=== PATIENT | female | born 1990 | race Caucasian/White ===

== ENCOUNTER 2016-12-17 05:15 | Emergency (ER) | payer BC ==
[2016-12-17 05:24] VITALS: RESP 16
[2016-12-17 05:49] LABS: Appearance,Urine Clear (Clear); Bilirubin,Urine Negative (Negative); Glucose,Urine (UA) Negative (Negative); Ketones,Urine Negative (Negative); Leukocyte Esterase,Urine Negative (Negative); Nitrite,Urine Negative (Negative); PH, Urine 6.5 (5.0-8.0); Protein,Urine Negative (Negative); Specific Gravity,Urine 1.006 (1.001-1.035); UA Billing (MACRO vs. MICRO) CHEM; Urobilinogen,Urine <2.0 mg/dL (<2.0)
--- NOTE | 2016-12-17 06:00 | ED ---
Abdominal Pain HPI - General Chief Complaint: Abdominal Pain Stated Complaint: Abd pain Time Seen by Provider: 12/17/16 05:39 Source: patient Mode of arrival: ambulatory Limitations: no limitations - History of Present Illness Initial Comments: This patient is 26-year-old woman who states that approximately an hour ago she was awakened from sleep by severe lower abdominal cramp. She states that it caused her to be doubled over in pain for number of minutes. She states that the symptoms have improved, and it is now down to mild intensity but has not completely resolved. She denies any previous history of this type of pain. There were no accompanying symptoms. She did notice that if she pressed on her low abdomen that seemed to help a little bit. She did not notice any worsening factors. She states that she had been in her usual state of health yesterday with no change in appetite, urination, or bowel movements. No change in periods or vaginal discharge. MD Complaint: abdominal pain Onset/Timin -: hour(s) Location: suprapubic Radiation: none Migration to: no migration Severity: severe Quality: cramping Consistency: colicky Improves With: other (Pressing on) Worsens With: nothing Associated Symptoms: denies other symptoms - Related Data Home Medications Medication Instructions Recorded Confirmed Mesalamine [Lialda] 1.2 gm PO 01/25/15 01/25/15 Norgestimate-Ethinyl Estradiol 1 each PO 01/25/15 01/25/15 [Sprintec 28 Day Tablet] Previous Rx's Medication Instructions Recorded Benzonatate [Tessalon Perles] 100 mg PO TID #30 cap 01/25/15 Naproxen [Naprosyn] 500 mg PO Q12HR PRN #20 tab 01/25/15 traMADol HCl [Ultram] 50 mg PO Q4H PRN #15 tab 01/25/15 Dicyclomine [Bentyl] 20 mg PO QID #15 tablet 12/17/16 Allergies Allergy/AdvReac Type Severity Reaction Status Date / Time No Known Allergies Allergy Verified 12/17/16 05:24 Review of Systems ROS Statement: Those systems with pertinent positive or pertinent negative responses have been documented in the HPI. ROS Other: All systems not noted in ROS Statement are negative. Constitutional: Denies: fever, chills Respiratory: Denies: cough, dyspnea Cardiovascular: Denies: chest pain, palpitations Gastrointestinal: Reports: as per HPI, abdominal pain. Denies: diarrhea, constipation, melena, hematochezia Genitourinary: Denies: dysuria, frequency, hematuria, discharge, abnormal menses Musculoskeletal: Denies: back pain Skin: Denies: rash Neurological: Denies: headache, weakness, numbness Past Medical History Past Medical History: No Reported History Additional Past Medical History / Comment(s): ulcerative colitis History of Any Multi-Drug Resistant Organisms: None Reported Past Surgical History: No Surgical Hx Reported Past Psychological History: No Psychological Hx Reported Smoking Status: Never smoker Past Alcohol Use History: Occasional Past Drug Use History: None Reported General Exam Limitations: no limitations General appearance: alert, in no apparent distress ENT exam: Present: normal oropharynx Respiratory exam: Present: normal lung sounds bilaterally. Absent: respiratory distress, wheezes, rales, rhonchi, stridor Cardiovascular Exam: Present: regular rate, normal rhythm, normal heart sounds. Absent: systolic murmur, diastolic murmur, rubs, gallop GI/Abdominal exam: Present: soft, normal bowel sounds. Absent: distended, tenderness, guarding, rebound, rigid, mass, pulsatile mass, hernia Extremities exam: Present: normal inspection, normal capillary refill. Absent: pedal edema, calf tenderness Back exam: Present: normal inspection. Absent: CVA tenderness (R), CVA tenderness (L) Skin exam: Present: warm, dry, intact, normal color. Absent: rash Course Vital Signs 12/17/16 12/17/16 05:22 06:43 Temperature 97.7 F 98.5 F Pulse Rate 97 72 Respiratory 16 16 Rate Blood Pressure 112/78 102/62 O2 Sat by Pulse 96 100 Oximetry Medical Decision Making - Medical Decision Making This patient is a 26-year-old woman who woke with severe lower abdominal spasm. Her symptoms are now resolved. We discussed appropriate further care and follow-up. She'll return should the symptoms recur or there are any new ones. - Lab Data Result diagrams: 12/17/16 05:50 12/17/16 05:50 Lab Results 12/17/16 12/17/16 12/17/16 Range/Units 05:30 05:30 05:50 WBC (3.8-10.6) k/uL RBC (3.80-5.40) m/uL Hgb (11.4-16.0) gm/dL Hct (34.0-46.0) % MCV (80.0-100.0) fL MCH (25.0-35.0) pg MCHC (31.0-37.0) g/dL RDW (11.5-15.5) % Plt Count (150-450) k/uL Neutrophils % % Lymphocytes % % Monocytes % % Eosinophils % % Basophils % % Neutrophils # (1.3-7.7) k/uL Lymphocytes # (1.0-4.8) k/uL Monocytes # (0-1.0) k/uL Eosinophils # (0-0.7) k/uL Basophils # (0-0.2) k/uL Sodium 142 (137-145) mmol/L Potassium 4.0 (3.5-5.1) mmol/L Chloride 108 H (98-107) mmol/L Carbon Dioxide 24 (22-30) mmol/L Anion Gap 10 mmol/L BUN 11 (7-17) mg/dL Creatinine 0.60 (0.52-1.04) mg/dL Est GFR (MDRD) Af Amer >60 (>60 ml/min/1.73 sqM) Est GFR (MDRD) Non-Af >60 (>60 ml/min/1.73 sqM) Glucose 96 (74-99) mg/dL Calcium 9.4 (8.4-10.2) mg/dL Total Bilirubin 1.0 (0.2-1.3) mg/dL AST 22 (14-36) U/L ALT 29 (9-52) U/L Alkaline Phosphatase 54 (38-126) U/L Total Protein 6.9 (6.3-8.2) g/dL Albumin 4.3 (3.5-5.0) g/dL Amylase 35 (30-110) U/L Lipase 51 (23-300) U/L Urine Color Yellow Urine Appearance Clear (Clear) Urine pH 6.5 (5.0-8.0) Ur Specific [place] 1.006 (1.001-1.035) Urine Protein Negative (Negative) Urine Glucose (UA) Negative (Negative) Urine Ketones Negative (Negative) Urine Blood Negative (Negative) Urine Nitrite Negative (Negative) Urine Bilirubin Negative (Negative) Urine Urobilinogen <2.0 (<2.0) mg/dL Ur Leukocyte Esterase Negative (Negative) Urine HCG, Qual Not Detected (Not Detectd) 12/17/16 Range/Units 05:50 WBC 7.7 (3.8-10.6) k/uL RBC 4.35 (3.80-5.40) m/uL Hgb 13.2 (11.4-16.0) gm/dL Hct 38.4 (34.0-46.0) % MCV 88.3 (80.0-100.0) fL MCH 30.3 (25.0-35.0) pg MCHC 34.4 (31.0-37.0) g/dL RDW 13.3 (11.5-15.5) % Plt Count 211 (150-450) k/uL Neutrophils % 63 % Lymphocytes % 28 % Monocytes % 5 % Eosinophils % 2 % Basophils % 0 % Neutrophils # 4.9 (1.3-7.7) k/uL Lymphocytes # 2.2 (1.0-4.8) k/uL Monocytes # 0.4 (0-1.0) k/uL Eosinophils # 0.1 (0-0.7) k/uL Basophils # 0.0 (0-0.2) k/uL Sodium (137-145) mmol/L Potassium (3.5-5.1) mmol/L Chloride (98-107) mmol/L Carbon Dioxide (22-30) mmol/L Anion Gap mmol/L BUN (7-17) mg/dL Creatinine (0.52-1.04) mg/dL Est GFR (MDRD) Af Amer (>60 ml/min/1.73 sqM) Est GFR (MDRD) Non-Af (>60 ml/min/1.73 sqM) Glucose (74-99) mg/dL Calcium (8.4-10.2) mg/dL Total Bilirubin (0.2-1.3) mg/dL AST (14-36) U/L ALT (9-52) U/L Alkaline Phosphatase (38-126) U/L Total Protein (6.3-8.2) g/dL Albumin (3.5-5.0) g/dL Amylase (30-110) U/L Lipase (23-300) U/L Urine Color Urine Appearance (Clear) Urine pH (5.0-8.0) Ur Specific [place] (1.001-1.035) Urine Protein (Negative) Urine Glucose (UA) (Negative) Urine Ketones (Negative) Urine Blood (Negative) Urine Nitrite (Negative) Urine Bilirubin (Negative) Urine Urobilinogen (<2.0) mg/dL Ur Leukocyte Esterase (Negative) Urine HCG, Qual (Not Detectd) Disposition Clinical Impression: Abdominal pain Disposition: HOME SELF-CARE Condition: Good Instructions: Abdominal Pain (ED) Prescriptions: Dicyclomine [Bentyl] 20 mg PO QID #15 tablet Referrals: Andrews Feliz DO [Primary Care Provider] - 1-2 days
[2016-12-17 06:16] LABS: Basophils % (A) 0 %; CH 30.6; CHCM 34.8; Eosinophils # (A) 0.1 k/uL (0-0.7); Eosinophils % (A) 2 %; HCT 38.4 % (34.0-46.0); HDW 2.44; HGB 13.2 gm/dL (11.4-16.0); Luc # (Auto) 0.14; Luc % (Auto) 2; Lymphocytes # (A) 2.2 k/uL (1.0-4.8); Lymphocytes % (A) 28 %; MCH 30.3 pg (25.0-35.0); MCHC 34.4 g/dL (31.0-37.0); MCV 88.3 fL (80.0-100.0); Monocytes # (A) 0.4 k/uL (0-1.0); Monocytes % (A) 5 %; Neutrophils # (A) 4.9 k/uL (1.3-7.7); Neutrophils % (A) 63 %; RBC 4.35 m/uL (3.80-5.40); RDW 13.3 % (11.5-15.5); WBC 7.7 k/uL (3.8-10.6); WBC (Perox) 8.21
[2016-12-17 06:24] LABS: ALT 29 U/L (9-52); AST 22 U/L (14-36); Alkaline Phosphatase 54 U/L (38-126); Amylase 35 U/L (30-110); Anion Gap 10 mmol/L; Blood Urea Nitrogen 11 mg/dL (7-17); Calcium 9.4 mg/dL (8.4-10.2); Carbon Dioxide 24 mmol/L (22-30); Chloride 108 mmol/L (98-107); Glucose 96 mg/dL (74-99); Non-African American GFR(MDRD) >60 (>60 ml/min/1.73 sqM); Sodium 142 mmol/L (137-145); Total Protein 6.9 g/dL (6.3-8.2)
[2016-12-17 06:45] VITALS: BP 102/62; PULSE 72; TEMP 98.5
== END 2016-12-17 07:01 | disposition home or self-care (01) ==
LOC: EC 05:15
DX: R10.30 Lower abdominal pain, unspecified (principal); Z79.3 Long term (current) use of hormonal contraceptives; Z79.899 Other long term (current) drug therapy
CPT/HCPCS: 36415; 80053; 81003; 81025; 82150; 83690; 85025; 99284

== ENCOUNTER 2017-10-21 19:18 | Outpatient (CLI) | payer BC ==
[2017-10-21 23:21] VITALS: BP 127/80; PULSE 95; RESP 18; TEMP 97.6
--- NOTE | 2017-10-22 07:23 | P.MSEPDOC ---
Presenting Problems - Arrival Data Date of Arrival on Unit: 10/21/17 Time of Arrival on Unit: 19:18 Mode of Transport: Ambulatory - Complaint OB-Reason for Admission/Chief Complaint: Pain Comment: pt c/o back pain, abd pain and cramping Medical History - Information : 1 Para: 0 Term: 0 : 0 Abortions: Spontaneous or Elective: 0 Number of Living Children: 0 - Gestational Age Gestational Age by BASSAM (wks/days): 36 Weeks and 0 Days - History Complications: Breech Review of Systems - Review of Systems Constitutional: No problems Breast: No problems ENT: No problems Cardiovascular: No problems Respiratory: No problems Gastrointestinal: No problems Genitourinary: No problems Musculoskeletal: No problems Neurological: No problems Skin: No problems Vital Signs - Temperature Temperature: 97.6 F Temperature Source: Temporal Artery Scan - Pulse Right Brachial Pulse Rate: 95 Pulse Assessment Method: Automatic Cuff - Respirations Respiratory Rate: 18 Oxygen Delivery Method: Room Air O2 Sat by Pulse Oximetry: 99 - Blood Pressure Right Arm Blood Pressure: 127/80 Blood Pressure Mean: 95 Blood Pressure Source: Automatic Cuff Medical Screen Scoring (Pre) - Cervical Exam Dilation: 0 cm = 0 Membranes: Intact - Uterine Contractions Frequency: > 5 minutes apart = 1 Duration: N/A Intensity: N/A - Maternal Vital Signs Maternal Temperature: N/A Maternal Blood Pressure: N/A Signs of Preeclampsia: N/A Maternal Respirations: N/A - Pain Assessment Pain Location and Character: Back, Perineal Pain Scale Used: Numeric (1 - 10) Pain Intensity: 5 Pain Management Goal: 3 Pain Description: *Acute Pain Radiation Location: none Pain Frequency: Intermittent Pain Duration Units: Minutes Pain Behavior: Vocalization - Maternal Trauma Maternal Trauma: N/A - Assessment Baseline FHR: 150 Heart Rate - NICHD Category: Category I (Normal) = 0 NST: Reactive Position: N/A Station: N/A - Total Score Total Score (Pre): 1 - Level of Risk Level of Risk: Low (0-5) Physician Notification (Pre) - Physician Notified Physician Notified Date: 10/21/17 Physician Notified Time: 20:59 Physician/Practitioner Notifed:: Dr Herrera Spoke With: Dr. Herrera - Notification Comment Comment: discharge pt home, follow up on Tuesday Disposition - Disposition OB Disposition: Written follow up instructions reviewed Discharge Date: 10/21/17 Discharge Time: 21:09 I agree with the RN Medical Screening Exam: Yes Risk & Benefit of care provided described in d/c instruction: Yes Diagnosis: FALSE LABOR BEFORE 37 COMPLETED WEEKS OF GEST, THIRD TRI
== END 2017-10-21 21:09 | disposition home or self-care (01) ==
LOC: FBPOP 19:18
PROVIDERS: ATTEND Obstetrics & Gynecology
DX: O47.03 False labor before 37 completed weeks of gestation, third trimester (principal); Z3A.36 36 weeks gestation of pregnancy
CPT/HCPCS: 59025; 99213

== ENCOUNTER 2017-10-24 06:00 | Inpatient (IN) | payer BC ==
[2017-10-24] MEDS ORDERED: LACTATED RINGERS 1,000 ML IV ONE (09:06)
[2017-10-24] MEDS ORDERED: CITRIC ACID-SODIUM CITRATE 15 ML CUP PO ONE (09:06)
[2017-10-24] MEDS ORDERED: LACTATED RINGERS 1,000 ML IV SCH (09:15)
--- NOTE | 2017-10-24 09:34 | P.HPOB ---
History of Present Illness H&P Date: 10/24/17 Chief Complaint: Anhydramios, breech, IUGR This patient is a pleasant 27 yr female EDC 11/18/2017 EGA 36wk3d who was noted to have IUGR and oligohydraminos at 35wks. She was subsequently referred to Dr. Gonzales ([facility]) and evaluation there showed IUGR (7%) with LUAN of 3.1. Recommendations were to do biweekly NST/evaluations and deliver at 37wks or earlier if indications. Patient was having decreased movement this weekend and ultrasound this morning shows no amniotic fluid (anhydraminos). Per [facility] recommendations will proceed with delivery now. care has been otherwise been uncomplicated. Review of Systems Gastrointestinal: Reports heartburn Genitourinary: Reports Menstruation: Reports amenorrhea Past Medical History Past Medical History: Asthma Additional Past Medical History / Comment(s): ulcerative colitis History of Any Multi-Drug Resistant Organisms: None Reported Past Surgical History: No Surgical Hx Reported Past Anesthesia/Blood Transfusion Reactions: No Reported Reaction Past Psychological History: No Psychological Hx Reported Smoking Status: Never smoker Past Alcohol Use History: None Reported Past Drug Use History: None Reported Medications and Allergies Home Medications Medication Instructions Recorded Confirmed Type Mesalamine [Lialda] 1.2 gm PO QID 01/25/15 10/21/17 History Pnv No.95/Ferrous Fum/Folic AC 1 tab PO ONCE 10/21/17 10/21/17 History [ Multivitamin Tablet] Allergies Allergy/AdvReac Type Severity Reaction Status Date / Time No Known Allergies Allergy Verified 10/21/17 19:39 Exam Intake and Output 10/23/17 10/24/17 10/24/17 22:59 06:59 14:59 Other: Weight 71.214 kg - OBG Physical Exam Abdomen: bowel sounds normal, no diffuse tenderness, no bruit present, no guarding noted, no hepatomegaly, no splenomegaly, no mass Vulva: both: normal Vagina: normal moisture, no discharge Cervix: no lesion (Closed), no discharge Uterus: enlarged (Fundal height 33cm) Results Labs: O negative, Rubella Immune, [id number] negative, Received Rhogam 08/31/2017, GBS negative. Ultrasound at [facility] (10/20) Breech 4#9oz (7%). LUAN today is 0. Assessment and Plan Assessment: This is a pleasant 27 yr female 36wk3d with severe IUGR and anhydraminos and breech presentation. Per [facility] recommendations will proceed with delivery at this time. Will deliver by C/S secondary to breech. I have discussed this surgery with Sharlene and her in detail, including risks: infection, bleeding, possible injury to bowel/bladder/vessels and/or other organs. She understands the risks of DVT/PE. All of the patients questions were answered and a written consent obtained. (1) IUGR (intrauterine growth restriction) Current Visit: Yes Status: Acute Code(s): PTH7927 - SNOMED Code(s): 25519711 (2) Breech presentation Current Visit: Yes Status: Acute Code(s): O32.1XX0 - MATERNAL CARE FOR BREECH PRESENTATION, UNSP SNOMED Code(s): 2328182 (3) Anhydramnios in third trimester Current Visit: Yes Status: Acute Code(s): O41.03X0 - OLIGOHYDRAMNIOS, THIRD TRIMESTER, NOT APPLICABLE OR UNSP SNOMED Code(s): 661249125 (4) Rh negative status during Current Visit: Yes Status: Acute Code(s): O09.899 - SUPERVISION OF OTHER HIGH RISK PREGNANCIES, UNSP TRIMESTER; Z67.91 - UNSPECIFIED BLOOD TYPE, RH NEGATIVE SNOMED Code(s): 235381825
[2017-10-24 09:39] LABS: ALT 16 U/L (9-52); AST 23 U/L (14-36); Albumin 3.7 g/dL (3.5-5.0); Alkaline Phosphatase 67 U/L (38-126); Bilirubin, Delta 0.2 mg/dL (0.0-0.2); Bilirubin,Unconjugated 0.5 mg/dL (0.0-1.1); LDH 473 U/L (313-618); Total Bilirubin 0.7 mg/dL (0.2-1.3); Total Protein 6.3 g/dL (6.3-8.2); Uric Acid 3.7 mg/dL (3.7-7.4)
[2017-10-24 09:54] VITALS: BMI 27.8
[2017-10-24 10:46] LABS: Basophils % (A) 0 %; Eosinophils # (A) 0.1 k/uL (0-0.7); Eosinophils % (A) 1 %; HCT 33.4 % (34.0-46.0); HGB 11.1 gm/dL (11.4-16.0); Lymphocytes # (A) 1.7 k/uL (1.0-4.8); Lymphocytes % (A) 17 %; MCH 28.3 pg (25.0-35.0); MCHC 33.2 g/dL (31.0-37.0); MCV 85.2 fL (80.0-100.0); Mean Platelet Volume 7.8; Monocytes # (A) 0.7 k/uL (0-1.0); Monocytes % (A) 7 %; Neutrophils # (A) 7.3 k/uL (1.3-7.7); Neutrophils % (A) 73 %; Platelet Count 204 k/uL (150-450); RBC 3.92 m/uL (3.80-5.40); RDW 13.9 % (11.5-15.5)
[2017-10-24 10:49] LABS: Blood Urea Nitrogen 6 mg/dL (7-17)
[2017-10-24] MEDS ORDERED: ceFAZolin IN SWFI 2 GM/20 ML SYRINGE IVP ONE (11:45)
[2017-10-24] MEDS ORDERED: OXYTOCIN 10 UNIT/ML 1 ML VIAL ONE (12:09)
[2017-10-24] MEDS ORDERED: MORPHINE SULFATE (PF) 0.3 MG/0.3 ML SYR ONE (12:09)
[2017-10-24] MEDS ORDERED: NALBUPHINE 10 MG/ML VIAL (10ML MDV) ONE (12:09)
[2017-10-24] MEDS ORDERED: LACTATED RINGERS 1,000 ML BAG IV ONE (12:09)
--- NOTE | 2017-10-24 13:00 | P.OP ---
Date of Procedure: 10/24/17 Preoperative Diagnosis: #1: 36-3/7 weeks . #2: Anhydramnios. #3: Breech presentation. Postoperative Diagnosis: Same Procedure(s) Performed: Primary low transverse section Anesthesia: spinal Surgeon: Ulises Herrera Mica Miner Blasting #1: Genna Blankenship Estimated Blood Loss (ml): 600 Pathology: other (Placenta) Condition: stable Disposition: floor Indications for Procedure: Please see dictated H&P for intimate details of this patient's admission. Brief summary this is a pleasant 27-year-old 1 para 0 female 36-3/7 weeks gestation admitted to labor and delivery for delivery secondary to anhydramnios. Patient is known breech presentation as well and therefore route of delivery is section. She had discussed the surgery and risks including risks of infection, bleeding, possible injury bowel, bladder, vessels , and/or other organs. Patient understands risk of DVT and pulmonary embolism. The patient's questions are answered and written consent is obtained. Operative Findings: This is a vigorous viable female infant Apgars are 8 and 9 delivery time is 1225 hrs. Infant was sacrum anterior phoebe breech presentation. Anhydramnios. Description of Procedure: This patient has a Shafer catheter placed to straight drain. She is subsequently taken to the operating room where she sat up and spinal anesthetic is administered without incident. With an adequate level of anesthesia she has abdominal prep and drape. Scalpels and taken and a Pfannenstiel skin incision is then made. A second scalpel is taken down to the fascia and the fascia scored with a knife. Fascial incision extended bilaterally using the Dubois scissors. Fascia is then dissected off the rectus muscles sharply. Rectus muscles are the peritoneum identified and entered sharply. The peritoneum was then developed superior and inferior without difficulty. Bladder blade is then placed. Bladder peritoneum is taken off the lower uterine segment sharply with Metzenbaum scissors. Scalpels taken a low transverse uterine incision is then made. Using a hemostat I into the uterine cavity and there is a loss of a very small amount of clear fluid. This incision is then extended bluntly. Infant is found to be sacrum anterior phoebe breech presentation. Using usual breech maneuvers we have delivery of a viable female infant Apgars 8 and 9 delivery time was 1225 hrs. has spontaneous respirations and good cry and grossly appears normal. The umbilical cord is then doubly clamped and cut appears to be trivascular. Infant is then handed off to the nurses in attendance. The placenta is then manually extracted intact. Uterus is then externalized and the uterine incision demarcated with Bergman clamps. Uterine incision is then closed using 0 Vicryl running locked fashion 2 layers excellent hemostasis is noted. Bladder peritoneum was then closed using a 3-0 Vicryl. Again good hemostasis is noted. Excess fluid is removed from the abdomen and pelvis. Uterus tubes and ovaries appear normal for term gestation. The parietal peritoneum was then identified and closed using 0 Vicryl running fashion. Rectus muscles are reapproximated in 0 Vicryl interrupted fashion. Fascia is then closed using 0 PDS. Fascial incision is intact and hemostatic. Subcutaneous tissues and reapproximated using a 3-0 Vicryl. Skin is and closed using nisreen. A sterile dressing is then applied. All counts are correct 3. There are no complications. and mother are stable in the birthing room.
[2017-10-24] MEDS ORDERED: Rhogam IMMUNE GLOBULIN 1,500 UNIT/1 ML IM ONE (13:12)
[2017-10-24] MEDS ORDERED: SIMETHICONE 80 MG CHEWABLE PO PRN (13:12)
[2017-10-24] MEDS ORDERED: METOCLOPRAMIDE 5 MG/ML 2 ML VIAL IVP PRN (13:12)
[2017-10-24] MEDS ORDERED: ONDANSETRON 4 MG/2 ML VIAL IVP PRN (13:12)
[2017-10-24] MEDS ORDERED: ZOLPIDEM 5 MG TAB PO PRN (13:12)
[2017-10-24] MEDS ORDERED: OXYTOCIN 20 UNITS/1000 ML NS 1,000 ML IV SCH (13:12)
[2017-10-24] MEDS ORDERED: diphenhydrAMINE 25 MG CAP PO PRN (13:12)
[2017-10-24] MEDS ORDERED: diphenhydrAMINE 50 MG/ML 1 ML VIAL IVP PRN (13:12)
[2017-10-24] MEDS ORDERED: NALOXONE 0.4 MG/ML 1 ML VIAL IV PRN ×2 (13:12→13:39)
[2017-10-24] MEDS ORDERED: LANOLIN CREAM 5 GM TUBE TOPICAL PRN (13:12)
[2017-10-24] MEDS ORDERED: DIPH,PERTUS(ACELL)TETVAC-LF 0.5 ML VIAL IM ONE (13:16)
[2017-10-24] MEDS ORDERED: NALBUPHINE 10 MG/ML VIAL (10ML MDV) IV PRN (13:39)
[2017-10-24] MEDS: LACTATED RINGERS 1,000 ML IV SCH ×2 (16:36→18:50)
[2017-10-24] MEDS: KETOROLAC 30 MG/ML 1 ML VIAL IVP PRN (20:48)
[2017-10-24] MEDS: SENNOSIDES-DOCUSATE SODIUM 1 EACH TAB PO SCH (20:48)
[2017-10-25] MEDS: KETOROLAC 30 MG/ML 1 ML VIAL IVP PRN ×2 (04:15→10:02)
[2017-10-25] MEDS: LACTATED RINGERS 1,000 ML IV SCH (05:15)
--- NOTE | 2017-10-25 06:30 | P.PNOBGPC ---
Subjective - Subjective Patient reports: Reports appetite normal, Reports voiding normally, Reports pain well controlled, Reports ambulating normally : doing well Objective - Vital Signs Latest vital signs: Vital Signs Temp Pulse Resp BP Pulse Ox 10/25/17 04:00 98.3 F 80 16 101/62 99 10/25/17 02:00 16 10/25/17 00:00 98.0 F 82 16 116/75 99 10/24/17 22:00 16 98 10/24/17 20:00 98.1 F 75 16 123/74 98 10/24/17 16:00 97.6 F 73 18 106/67 97 10/24/17 14:50 87 16 105/64 97 10/24/17 14:39 16 97 10/24/17 14:20 93 18 106/57 97 10/24/17 13:50 92 16 103/59 98 10/24/17 13:39 17 98 10/24/17 13:35 85 16 100/61 98 10/24/17 13:20 82 18 109/62 97 10/24/17 13:05 85 18 158/74 97 10/24/17 12:50 97.9 F 86 17 113/69 97 10/24/17 09:37 99.0 F 94 16 110/69 96 Intake and Output 10/24/17 10/24/17 10/25/17 14:59 22:59 06:59 Intake Total 1700 500 600 Output Total 900 200 250 Balance 800 300 350 Intake: IV 1700 500 Invasive Line 1 500 Other 600 Output: Urine 500 200 250 Uretheral (Shafer) 200 Estimated Blood Loss 400 Other: Voiding Method Indwelling Catheter Weight 71.214 kg - Exam Lungs: bilateral: normal Chest: Normal S1, Normal S2 Extremities: Present: normal Abdomen: Present: normal appearance, soft. Absent: distention, tenderness Incision: Present: normal, dry, intact Uterus: Present: normal, firm - Labs Labs: Abnormal Lab Results - Last 24 Hours (Table) 10/24/17 10/24/17 Range/Units 09:00 09:10 Hgb 11.1 L (11.4-16.0) gm/dL Hct 33.4 L (34.0-46.0) % BUN 6 L (7-17) mg/dL Creatinine 0.40 L (0.52-1.04) mg/dL Assessment and Plan Assessment: Post operative day #1. Patient is resting without complaints. Vital signs are stable she's afebrile. Uterus is firm nontender and her incision is intact and dry. CBC is pending at this time. My impression is this is a normal postoperative course. Plan is to advance to regular diet, check a CBC, encouraged patient ambulate, allow the patient to shower. (1) IUGR (intrauterine growth restriction) Current Visit: Yes Status: Acute Code(s): PUB6903 - SNOMED Code(s): 58398677 (2) Breech presentation Current Visit: Yes Status: Acute Code(s): O32.1XX0 - MATERNAL CARE FOR BREECH PRESENTATION, UNSP SNOMED Code(s): 1426687 (3) Anhydramnios in third trimester Current Visit: Yes Status: Acute Code(s): O41.03X0 - OLIGOHYDRAMNIOS, THIRD TRIMESTER, NOT APPLICABLE OR UNSP SNOMED Code(s): 546906525 (4) Rh negative status during Current Visit: Yes Status: Acute Code(s): O09.899 - SUPERVISION OF OTHER HIGH RISK PREGNANCIES, UNSP TRIMESTER; Z67.91 - UNSPECIFIED BLOOD TYPE, RH NEGATIVE SNOMED Code(s): 610639228
[2017-10-25] MEDS: SENNOSIDES-DOCUSATE SODIUM 1 EACH TAB PO SCH ×2 (07:20→23:18)
[2017-10-25 07:56] LABS: Basophils % (A) 0 %; Eosinophils % (A) 0 %; HCT 30.4 % (34.0-46.0); HGB 10.2 gm/dL (11.4-16.0); Lymphocytes # (A) 1.3 k/uL (1.0-4.8); Lymphocytes % (A) 14 %; MCH 28.8 pg (25.0-35.0); MCHC 33.5 g/dL (31.0-37.0); MCV 85.8 fL (80.0-100.0); Mean Platelet Volume 7.9; Monocytes # (A) 0.5 k/uL (0-1.0); Monocytes % (A) 6 %; Neutrophils # (A) 6.9 k/uL (1.3-7.7); Neutrophils % (A) 77 %; Platelet Count 174 k/uL (150-450); RBC 3.54 m/uL (3.80-5.40); RDW 13.9 % (11.5-15.5); WBC 8.9 k/uL (3.8-10.6)
--- NOTE | 2017-10-25 11:04 | P.PN ---
Progress Note - Text Anesthesia POD 1. Patient is status post section under spinal anesthesia with intra-thecal preservative free morphine 300 g. Mild pruritus, good post-op analgesia, and no headache or other complications.
[2017-10-25] MEDS: IBUPROFEN 600 MG TAB PO PRN ×2 (15:45→23:18)
[2017-10-25] MEDS: ACETAMINOPHEN TAB 325 MG TAB PO PRN (18:34)
[2017-10-26] MEDS: IBUPROFEN 600 MG TAB PO PRN ×2 (05:51→13:58)
--- NOTE | 2017-10-26 06:38 | P.PNOBGPC ---
Subjective - Subjective Patient reports: Reports appetite normal, Reports voiding normally, Reports pain well controlled, Reports ambulating normally : doing well Objective - Vital Signs Latest vital signs: Vital Signs Temp Pulse Resp BP Pulse Ox 10/25/17 23:43 98.8 F 82 14 119/75 98 10/25/17 15:54 98.7 F 91 18 115/72 98 10/25/17 14:00 20 10/25/17 12:00 98.0 F 91 20 102/67 10/25/17 10:00 16 10/25/17 08:00 97.9 F 83 16 109/64 Intake and Output 10/25/17 10/25/17 10/26/17 14:59 22:59 06:59 Other: # Voids 1 2 2 - Exam Lungs: bilateral: normal Chest: Normal S1, Normal S2 Extremities: Present: normal Abdomen: Present: normal appearance, soft. Absent: distention, tenderness Incision: Present: normal, dry, intact Uterus: Present: normal, firm - Labs Labs: Abnormal Lab Results - Last 24 Hours (Table) 10/25/17 Range/Units 07:28 RBC 3.54 L (3.80-5.40) m/uL Hgb 10.2 L (11.4-16.0) gm/dL Hct 30.4 L (34.0-46.0) % Assessment and Plan Assessment: Post operative day #2. Patient is resting without complaints. Vital signs are stable she is afebrile. Uterus is firm nontender and her incision is intact and dry. CBC yesterday was normal. I impression this is a normal postoperative course. Plan is to continue routine postoperative care and most likely will go home tomorrow. (1) IUGR (intrauterine growth restriction) Current Visit: Yes Status: Acute Code(s): [id number] - SNOMED Code(s): 87603667 (2) Breech presentation Current Visit: Yes Status: Acute Code(s): O32.1XX0 - MATERNAL CARE FOR BREECH PRESENTATION, UNSP SNOMED Code(s): 4410799 (3) Anhydramnios in third trimester Current Visit: Yes Status: Acute Code(s): O41.03X0 - OLIGOHYDRAMNIOS, THIRD TRIMESTER, NOT APPLICABLE OR UNSP SNOMED Code(s): 581522186 (4) Rh negative status during Current Visit: Yes Status: Acute Code(s): O09.899 - SUPERVISION OF OTHER HIGH RISK PREGNANCIES, UNSP TRIMESTER; Z67.91 - UNSPECIFIED BLOOD TYPE, RH NEGATIVE SNOMED Code(s): 282181273
[2017-10-26] MEDS: SENNOSIDES-DOCUSATE SODIUM 1 EACH TAB PO SCH (08:33)
[2017-10-26 10:08] VITALS: TEMP 98.4
[2017-10-26] MEDS: ACETAMINOPHEN TAB 325 MG TAB PO PRN (18:13)
[2017-10-26] MEDS ORDERED: IBUPROFEN 600 MG TAB PO ONE (22:10)
[2017-10-27] MEDS ORDERED: IBUPROFEN 600 MG TAB PO ONE (01:15)
[2017-10-27] MEDS ORDERED: ACETAMINOPHEN TAB 325 MG TAB ONE (01:15)
[2017-10-27] MEDS: SENNOSIDES-DOCUSATE SODIUM 1 EACH TAB PO SCH ×2 (04:59→08:24)
[2017-10-27] MEDS: ACETAMINOPHEN TAB 325 MG TAB PO PRN (08:24)
[2017-10-27 08:32] VITALS: BP 120/74; PULSE 78; RESP 18
--- NOTE | 2017-10-27 08:56 | P.DS ---
Providers Date of admission: 10/24/17 08:43 Expected date of discharge: 10/27/17 Attending physician: Ulises Herrera [place] [facility] Course: This is a 27-year-old female 1 para 0 who presented for primary section secondary to breech presentation and no amniotic fluid. She underwent a primary low transverse section on the 2017 and delivered a viable female with scores of 8 at 1 minute and 9 at 5 minutes and weight 4 lbs. 15 oz. Postoperative course has been essentially uncomplicated. She is ambulating. She is passing flatus and bowel movement. Pain is well-controlled. She is attempting to breast-feed. Vital signs are stable. Abdomen is soft with positive bowel sounds 4. Incision is clean dry and intact. Extremities show negative Homans. Impression is status post primary section postoperative day #3. Plan is to discharge home today. Routine postoperative and instructions are given. Prescriptions are given per Dr. Herrera. She will be given a prescription for a breast pump. She is advised to follow up with Dr. Herrera in the office in approximately 1 week for a postoperative check and in 6 weeks for check. She is advised to call the office if she has any further questions or concerns prior to her appointment time. Procedures: Primary low transverse section on 10/24/2017 Patient Condition at Discharge: Stable Plan - Discharge Summary Discharge Rx Participant: Yes New Discharge Prescriptions: New Ibuprofen [Motrin] 600 mg PO Q6HR PRN #40 tab PRN Reason: Mild Pain Or Fever >= 100.5 No Action Mesalamine [Lialda] 4 tab PO DAILY Pnv No.95/Ferrous Fum/Folic AC [ Multivitamin Tablet] 1 tab PO ONCE Discharge Medication List Mesalamine [Lialda] 4 tab PO DAILY 01/25/15 [History] Pnv No.95/Ferrous Fum/Folic AC [ Multivitamin Tablet] 1 tab PO ONCE [History] Ibuprofen [Motrin] 600 mg PO Q6HR PRN #40 tab 10/26/17 [Rx] Follow up Appointment(s)/Referral(s): Ulises Herrera MD [STAFF PHYSICIAN] - 11/04/17 1:30 pm (Patient also has a appointment on December 07 at 11:15 AM.) Patient Instructions/Handouts: (DC) Activity/Diet/Wound Care/Special Instructions: No strenuous activity or heavy lifting for 6 weeks. No intercourse or anything per vagina for 6 weeks. Please call if any fever, chills, excessive vaginal bleeding, and/or abdominal pain. Discharge Disposition: HOME SELF-CARE
[2017-10-27] MEDS: IBUPROFEN 600 MG TAB PO PRN (10:34)
== END 2017-10-27 12:16 | disposition home or self-care (01) | DRG 765 ==
LOC: 4FBP 08:43
PROVIDERS: ADMIT Obstetrics & Gynecology; ATTEND Obstetrics & Gynecology
PROC: 10D00Z1 Extraction of Products of Conception, Low, Open Approach (ICD-10-PCS; principal; 2017-10-24 12:21)
DX: O41.03X0 Oligohydramnios, third trimester, not applicable or unspecified (principal); O36.0930 Maternal care for other rhesus isoimmunization, third trimester, not applicable or unspecified; O36.5930 Maternal care for other known or suspected poor fetal growth, third trimester, not applicable or unspecified; O32.1XX0 Maternal care for breech presentation, not applicable or unspecified; Z37.0 Single live birth; Z3A.36 36 weeks gestation of pregnancy; Z79.899 Other long term (current) drug therapy
CPT/HCPCS: 80076; 82565; 83615; 84520; 84550; 85025; 85461; 86850; 86870; 86880; 86900; 86901; 88307; 90715

== ENCOUNTER 2018-03-31 08:42 | Day surgery (SDC) | payer BC ==
[2018-03-29 13:10] VITALS: BMI 23.0
[~2018-03-31 08:42] MED LIST: LACTATED RINGERS 1,000 ML IV SCH; LIDOCAINE 1% 20 ML VIAL (10MG/ML) FOR IV START INTRADERMA PRN
[2018-03-31 09:18] VITALS: RESP 16; TEMP 97.5
[2018-03-31] MEDS ORDERED: PROPOFOL 10 MG/ML 20 ML VIAL IV ONE (09:22)
--- NOTE | 2018-03-31 09:36 | P.PCN ---
Date of Procedure: 03/31/18 Procedure(s) Performed: BRIEF HISTORY: Patient is a 27-year-old pleasant white female, scheduled for an elective colonoscopy as a part of surveillance of long-standing history of ulcerative colitis diagnosed in 2010. PROCEDURE PERFORMED: Colonoscopy with random biopsies. PREOPERATIVE DIAGNOSIS: Surveillance of long-standing history of ulcerative colitis. IV sedation per Anesthesia. PROCEDURE: After informed consent was obtained, the patient, was brought into the endoscopy unit. IV sedation was administered by Anesthesia under continuous monitoring. Digital rectal examination was normal. Initially the Olympus CF- 160 flexible video colonoscope was then inserted in the rectum, gradually advanced into the cecum without any difficulty. Careful examination was performed as the scope was gradually being withdrawn. Ileocecal valve and the appendiceal orifice were visualized and appeared normal. Prep was excellent. Mucosa of the cecum, ascending colon, transverse colon, descending colon, sigmoid colon, and rectum appeared normal. Random biopsies were done at every 10 cm intervals from rectum to cecum to rule out dysplasia. Retroflexion was performed in the rectum and no lesions were seen. The patient tolerated the procedure well. IMPRESSION: Normal-appearing colon from rectum to cecum with no evidence of active colitis or colorectal neoplasia. RECOMMENDATIONS: Findings of this examination were discussed with the patient is a family. She was advised to follow with the biopsy results. If the biopsy does not show any evidence of dysplasia, she can have a repeat colonoscopy in 2 years.
[2018-03-31 09:59] VITALS: BP 105/60; PULSE 84
== END 2018-03-31 10:42 | disposition home or self-care (01) ==
LOC: ORWHC2ENDO 08:42
PROVIDERS: ATTEND Internal Medicine Gastroenterology
DX: K51.90 Ulcerative colitis, unspecified, without complications (principal); J45.909 Unspecified asthma, uncomplicated; Z79.899 Other long term (current) drug therapy
CPT/HCPCS: 81025; 88305; 45380; J2704

== ENCOUNTER 2020-03-24 09:48 | Inpatient (IN) | payer BC ==
--- NOTE | 2020-03-24 08:39 | P.HPOB ---
History of Present Illness H&P Date: 03/24/20 Chief Complaint: Repeat C/S This patient is a pleasant 29 yr female estimated date of confinement 03/31/2020 estimated gestational age 39 0/7 weeks who presents for repeat section. Patient has a history of IUGR/oligohydraminos with a previous , but this has been uncomplicated with normal growth. Review of Systems Genitourinary: Reports Menstruation: Reports amenorrhea Past Medical History Past Medical History: Asthma Additional Past Medical History / Comment(s): ulcerative colitis History of Any Multi-Drug Resistant Organisms: None Reported Past Surgical History: Section Additional Past Surgical History / Comment(s): COLONOSCOPY Past Anesthesia/Blood Transfusion Reactions: No Reported Reaction Past Psychological History: No Psychological Hx Reported Smoking Status: Never smoker Past Alcohol Use History: None Reported Past Drug Use History: None Reported - Past Family History Father Family Medical History: No Reported History Medications and Allergies Home Medications Medication Instructions Recorded Confirmed Type Balsalazide Disodium 2,250 mg PO TID 03/29/18 03/31/18 History Allergies Allergy/AdvReac Type Severity Reaction Status Date / Time No Known Allergies Allergy Verified 03/31/18 09:16 Exam - OBG Physical Exam Abdomen: bowel sounds normal, no diffuse tenderness, no bruit present, no guarding noted, no hepatomegaly, no splenomegaly, no mass Vulva: both: normal Vagina: normal moisture, no discharge Cervix: no lesion, no discharge Uterus: enlarged Results bloodwork: O negative (Rhogam 01/01/2020), Rubella Non-Immune, ZMR-[id number]-HLI neg, Glucola 121, GBS negative. Normal growth/anatomy ultrasounds. Assessment and Plan Assessment: This is a pleasant 29 yr female 39 weeks gestation who presents for a repeat section. Sharlene and Lupe have discussed this surgery and risks: infection, bleeding, possible injury to bowel/bladder/vessels and/or other organs. She understands the risk of DVT/PE. All of her questions were answered and a written consent obtained. (1) 39 weeks gestation of Status: Acute Code(s): Z3A.39 - 39 WEEKS GESTATION OF SNOMED Code(s): 36255044 (2) Previous delivery affecting Status: Acute Code(s): O34.219 - MATERNAL CARE FOR UNSP TYPE SCAR FROM PREVIOUS DEL SNOMED Code(s): 632353704 (3) Rh negative status during Status: Acute Code(s): O09.899 - SUPERVISION OF OTHER HIGH RISK PREGNANCIES, UNSP TRIMESTER; Z67.91 - UNSPECIFIED BLOOD TYPE, RH NEGATIVE SNOMED Code(s): 507773531
[2020-03-24] MEDS ORDERED: CITRIC ACID-SODIUM CITRATE 15 ML CUP PO ONE (10:05)
[2020-03-24] MEDS ORDERED: LACTATED RINGERS 1,000 ML IV ONE (10:05)
[2020-03-24 10:41] LABS: Basophils % (A) 0 %; Eosinophils # (A) 0.1 k/uL (0-0.7); Eosinophils % (A) 1 %; HCT 36.6 % (34.0-46.0); HGB 12.3 gm/dL (11.4-16.0); Lymphocytes # (A) 1.7 k/uL (1.0-4.8); Lymphocytes % (A) 17 %; MCHC 33.6 g/dL (31.0-37.0); MCV 89.5 fL (80.0-100.0); Mean Platelet Volume 8.4; Monocytes # (A) 0.5 k/uL (0-1.0); Monocytes % (A) 5 %; Neutrophils # (A) 7.5 k/uL (1.3-7.7); Neutrophils % (A) 75 %; Platelet Count 157 k/uL (150-450); RBC 4.09 m/uL (3.80-5.40); RDW 14.2 % (11.5-15.5)
[2020-03-24] MEDS: LACTATED RINGERS 1,000 ML IV SCH ×3 (10:47→22:48)
[2020-03-24] MEDS ORDERED: ONDANSETRON 4 MG/2 ML VIAL ONE (12:03)
[2020-03-24] MEDS ORDERED: OXYTOCIN 10 UNIT/ML 1 ML VIAL ONE (12:03)
[2020-03-24] MEDS ORDERED: MORPHINE SULFATE (PF) 0.3 MG/0.3 ML SYR ONE (12:03)
[2020-03-24] MEDS ORDERED: NALBUPHINE 10 MG/ML (1 ML AMP) ONE (12:03)
[2020-03-24] MEDS ORDERED: KETOROLAC 15 MG/ML 1 ML VIAL ONE (12:03)
[2020-03-24] MEDS ORDERED: NALOXONE 0.4 MG/ML 1 ML VIAL IV PRN (12:27)
[2020-03-24] MEDS ORDERED: diphenhydrAMINE 50 MG/ML 1 ML VIAL IVP PRN ×2 (12:27→12:48)
[2020-03-24] MEDS ORDERED: ONDANSETRON 4 MG/2 ML VIAL IVP PRN (12:27)
[2020-03-24] MEDS ORDERED: MORPHINE SULFATE 2 MG/ML SYRINGE IVP PRN (12:27)
[2020-03-24] MEDS ORDERED: MEASLES-MUMPS-RUBELLA VACC/PF 12,500 UNIT/0.5 ML VIAL SQ ONE (12:48)
[2020-03-24] MEDS ORDERED: HYDROcodone/APAP 5-325MG 1 EACH TAB PO PRN (12:48)
[2020-03-24] MEDS ORDERED: ZOLPIDEM 5 MG TAB PO PRN (12:48)
[2020-03-24] MEDS ORDERED: METOCLOPRAMIDE 5 MG/ML 2 ML VIAL IVP PRN (12:48)
[2020-03-24] MEDS ORDERED: diphenhydrAMINE 25 MG CAP PO PRN (12:48)
[2020-03-24] MEDS ORDERED: Rhogam IMMUNE GLOBULIN 1,500 UNIT/1 ML IM ONE (12:48)
[2020-03-24] MEDS ORDERED: SIMETHICONE 80 MG CHEWABLE PO PRN (12:48)
--- NOTE | 2020-03-24 12:57 | P.OP ---
Date of Procedure: 03/24/20 Preoperative Diagnosis: #1: 39-0/7 week intrauterine . #2: Previous section desires repeat. Postoperative Diagnosis: Same Procedure(s) Performed: Repeat low transverse section Anesthesia: spinal Surgeon: Ulises Herrera Iron Guardrail Installer #1: Genna Blankenship Estimated Blood Loss (ml): 800 Pathology: none sent Condition: stable Disposition: observation Indications for Procedure: Please see dictated H&P for intimate details of this patient's admission. In brief summary this is a pleasant 29-year-old 2 para 1 female 39-0/7 weeks gestation admitted to labor and delivery for elective repeat section. Patient her stands the surgery and risks and risks of infection, bleeding, possible injury bowel, bladder, vessels, and/or other organs. All the patient's questions are answered written consent obtained. Operative Findings: This is a vigorous viable female infant Apgars 9 and 9 delivery time is 1218 hrs. Infant grossly appeared normal. Nuchal cord 1. Description of Procedure: This patient has a Shafer catheter placed to straight drain. Patient subsequently taken to the operating room where she sat up and spinal anesthetic is administered without incident. With an adequate level of anesthesia she has abdominal prep and drape. Appropriate timeout was done. Scalpels taken previous Pfannenstiel incision is excised. Second scalpel is taken down the fa scia the fascia scored with a knife. Fascial incision extended bilaterally with the Dubois scissors. Rectus muscles are then the peritoneum identified and entered sharply. Peritoneal incision extended superior and inferior without difficulty. Bladder blade is then placed. Bladder peritoneum was taken off the lower uterine segment sharply. Bladder blade is then placed. Scalpels and t aken low transverse uterine incision is then made. Using a hemostat I enter the uterine cavity bluntly and there is loss of clear fluid. This incision is then extended and the 's head is delivered through the incision with fundal pressure. Mouth and nares are bulb suctioned. Nuchal cord is then reduced. With fundal pressure we then have deliver the anterior and posterior shoulder and rest this 's body. This is a vigorous viable female Apgars are 9 and 9 delivery time is 1218 hrs. After delivery of the infant the umbilical cord is doubly clamped and cut. It appears to be trivascular. Cord blood is obtained for Rh status. The placenta is then manually extracted intact. Uterus is then externalized uterine incision demarcated with Bergman clamps. Uterine incision is then closed using 0 Vicryl running locked fashion 2 layers. Excellent hemostasis is noted. Bladder peritoneum was then reapproximated using a 3-0 Vicryl. Excess fluid is removed from the abdomen and pelvis. Uterus tubes and ovaries appear normal for term gestation. Uterus placed back into the abdomen. Parietal peritoneum was then identified and closed using 0 Vicryl running fashion. Rectus muscles are then reapproximated in 0 Vicryl interrupted fashion. Fascia is then closed using 0 PDS. Fascial incision is intact and hemostatic. Subcutaneous tissue is and closed using a 3-0 Vicryl. Skin is and closed using nisreen. All counts are correct 3. No complications. Sterile dressing is applied and patient is taken to the birthing suite in satisfactory condition
[2020-03-24] MEDS ORDERED: OXYTOCIN 20 UNITS/1000 ML NS 1,000 ML IV SCH (13:00)
[2020-03-24] MEDS: KETOROLAC 15 MG/ML 1 ML VIAL IVP PRN (20:13)
[2020-03-24] MEDS: SENNOSIDES-DOCUSATE SODIUM 1 EACH TAB PO SCH (20:14)
[2020-03-25 07:48] LABS: Basophils % (A) 0 %; Eosinophils % (A) 0 %; HCT 35.4 % (34.0-46.0); HGB 11.9 gm/dL (11.4-16.0); Lymphocytes # (A) 1.3 k/uL (1.0-4.8); Lymphocytes % (A) 14 %; MCH 30.3 pg (25.0-35.0); MCHC 33.5 g/dL (31.0-37.0); MCV 90.6 fL (80.0-100.0); Mean Platelet Volume 9.1; Monocytes # (A) 0.6 k/uL (0-1.0); Monocytes % (A) 6 %; Neutrophils # (A) 7.3 k/uL (1.3-7.7); Neutrophils % (A) 78 %; Platelet Count 141 k/uL (150-450); RBC 3.91 m/uL (3.80-5.40); RDW 14.1 % (11.5-15.5); WBC 9.4 k/uL (3.8-10.6)
[2020-03-25] MEDS: SENNOSIDES-DOCUSATE SODIUM 1 EACH TAB PO SCH ×2 (07:56→19:53)
[2020-03-25] MEDS: KETOROLAC 15 MG/ML 1 ML VIAL IVP PRN (07:57)
[2020-03-25 08:01] VITALS: RESP 16
--- NOTE | 2020-03-25 08:02 | P.PNOBGPC ---
Subjective - Subjective Principal diagnosis: S/P RLTCS POD #1 Interval history: Pt seen and examined. denies N/V, F/C, CP, SOB or calf pain. no passing flatus yet. ambulating around room. Patient reports: Reports appetite normal, Reports voiding normally, Reports pain well controlled, Reports ambulating normally : doing well Objective - Vital Signs Latest vital signs: Vital Signs Temp Pulse Resp BP Pulse Ox 03/25/20 06:00 14 03/25/20 04:00 97.6 F 63 16 122/72 96 03/25/20 02:00 16 03/25/20 00:00 97.7 F 66 16 115/70 96 03/24/20 22:00 16 03/24/20 20:00 97.7 F 71 16 116/86 97 03/24/20 17:28 98 03/24/20 17:00 16 98 03/24/20 16:00 97.5 F L 73 16 130/73 98 03/24/20 15:28 16 03/24/20 14:45 96.3 F L 64 16 111/67 100 03/24/20 14:15 73 16 136/72 99 03/24/20 13:45 81 16 139/70 97 03/24/20 13:30 71 16 120/70 98 03/24/20 13:28 16 98 03/24/20 13:15 87 16 121/71 98 03/24/20 13:00 90 16 125/76 98 03/24/20 12:45 97.2 F L 93 16 121/73 98 03/24/20 10:04 96.8 F L 89 16 117/75 100 Intake and Output 03/24/20 03/25/20 03/25/20 22:59 06:59 14:59 Output Total 200 200 Balance -200 -200 Output: Urine 200 200 Straight 200 Uretheral (Shafer) 200 Other: # Voids 0 # Emeses 1 - Exam Lungs: bilateral: normal Chest: Normal S1, Normal S2 Extremities: Present: normal Abdomen: Present: normal appearance, soft. Absent: distention, tenderness Incision: Present: normal, dry, intact Uterus: Present: normal, firm - Labs Labs: Abnormal Lab Results - Last 24 Hours (Table) 03/25/20 Range/Units 07:32 Plt Count 141 L (150-450) k/uL Assessment and Plan (1) Status post repeat low transverse section Current Visit: Yes Status: Acute Code(s): Z98.891 - HISTORY OF UTERINE SCAR FROM PREVIOUS SURGERY SNOMED Code(s): 682701612 Plan: 1. increase ambulation 2. reg diet 3. po pain meds
--- NOTE | 2020-03-25 08:54 | P.PN ---
Progress Note - Text Progress Note Date: 03/25/20 Postoperative day 1 status post section under spinal anesthesia, and i ntrathecal morphine given for postoperative analgesia, patient doing well, there is no anesthesia related complications, Patient had no headache, vital signs stable , Assessment and plan= postop day 1 status post , doing well there is no anesthesia related complication.
[2020-03-25] MEDS: IBUPROFEN 600 MG TAB PO PRN (15:33)
[2020-03-25] MEDS: ACETAMINOPHEN TAB 325 MG TAB PO PRN (18:49)
[2020-03-26] MEDS: IBUPROFEN 600 MG TAB PO PRN (01:05)
--- NOTE | 2020-03-26 07:24 | P.DS ---
Providers Date of admission: 03/24/20 09:48 Expected date of discharge: 03/26/20 Attending physician: Ulises Herrera Primary care physician: Stated None - Discharge Diagnosis(es) (1) Status post repeat low transverse section Current Visit: Yes Status: Acute Hospital Course: Patient presented for repeat low transverse . She did with this procedure without patient. Postoperative course was uneventful. Her incision is clean, dry, intact with nisreen. Denies nausea, vomiting, chest pain, shortness of breath or any calf pain. She'll be discharged home postoperative day #2 in stable condition to follow-up with Dr. Herrera in one week. Plan - Discharge Summary New Discharge Prescriptions: New Ibuprofen [Motrin] 600 mg PO Q6HR PRN #40 tab PRN Reason: Mild Pain Or Fever >= 100.5 HYDROcodone/APAP 5-325MG [Henning 5-325] 1 each PO Q4HR PRN #18 tab PRN Reason: Moderate Pain No Action Mesalamine 4 tab PO DAILY Discharge Medication List HYDROcodone/APAP 5-325MG [Henning 5-325] 1 each PO Q4HR PRN #18 tab 03/24/20 [Rx] Ibuprofen [Motrin] 600 mg PO Q6HR PRN #40 tab 03/24/20 [Rx] Mesalamine 4 tab PO DAILY 03/24/20 [History] Follow up Appointment(s)/Referral(s): Ulises Herrera MD [STAFF PHYSICIAN] - 04/03/20 9:00 am (Please see me on May 06 at 10:30 AM for a visit as well.) Patient Instructions/Handouts: (DC) Activity/Diet/Wound Care/Special Instructions: No heavy lifting or strenuous activities for 6 weeks. No intercourse for 6 weeks. Please call if any fever, chills, excessive vaginal bleeding, and/or abdominal pain. Discharge Disposition: HOME SELF-CARE
[2020-03-26] MEDS: ACETAMINOPHEN TAB 325 MG TAB PO PRN (08:55)
[2020-03-26] MEDS: SENNOSIDES-DOCUSATE SODIUM 1 EACH TAB PO SCH (08:55)
[2020-03-26 09:26] VITALS: BP 138/76; PULSE 71; TEMP 98.1
== END 2020-03-26 11:25 | disposition home or self-care (01) | DRG 787 ==
LOC: 4FBP 09:48
PROVIDERS: ADMIT Obstetrics & Gynecology; ATTEND Obstetrics & Gynecology
PROC: 10D00Z1 Extraction of Products of Conception, Low, Open Approach (ICD-10-PCS; principal; 2020-03-24 12:14)
DX: O34.211 Maternal care for low transverse scar from previous cesarean delivery (principal); K51.90 Ulcerative colitis, unspecified, without complications; O69.81X0 Labor and delivery complicated by cord around neck, without compression, not applicable or unspecified; O99.62 Diseases of the digestive system complicating childbirth; K21.9 Gastro-esophageal reflux disease without esophagitis; O26.893 Other specified pregnancy related conditions, third trimester; Z37.0 Single live birth; Z3A.39 39 weeks gestation of pregnancy; Z87.09 Personal history of other diseases of the respiratory system; Z67.91 Unspecified blood type, Rh negative
CPT/HCPCS: 85025; 85461; 86850; 86870; 86880; 86900; 86901; 90707

== ENCOUNTER 2020-08-29 07:45 | Day surgery (SDC) | payer BC ==
[2020-08-26 15:36] VITALS: BMI 22.6
[~2020-08-29 07:45] MED LIST changes: +LIDOCAINE 1% (10MG/ML) FOR IV START INTRADERMA PRN; -LIDOCAINE 1% 20 ML VIAL (10MG/ML) FOR IV START INTRADERMA PRN
[2020-08-29 08:07] VITALS: TEMP 97.5
[2020-08-29] MEDS ORDERED: MIDAZOLAM 2 MG/2 ML VIAL ONE (08:21)
[2020-08-29] MEDS ORDERED: LIDOCAINE 1% INJ 10MG/ML (20 ML MDV) ONE (08:21)
[2020-08-29] MEDS ORDERED: PROPOFOL 10 MG/ML 20 ML VIAL IV ONE (08:21)
[2020-08-29] MEDS ORDERED: fentaNYL (PF) 50 MCG/ML 2 ML AMP ONE (08:21)
--- NOTE | 2020-08-29 08:37 | P.PCN ---
Date of Procedure: 08/29/20 Procedure(s) Performed: BRIEF HISTORY: Patient is a 30-year-old pleasant white female scheduled for an elective colonoscopy as a part of evaluation of long-standing of ulcerative colitis diagnosed in 2010. She remains in clinical remission. Last colonoscopy 2 yrs ago. PROCEDURE PERFORMED: Colonoscopy with random biopsy. PREOPERATIVE DIAGNOSIS: Long-standing history of ulcerative colitis. IV sedation per Anesthesia. PROCEDURE: After informed consent was obtained, the patient, was brought into [facility] endoscopy unit. IV sedation was administered by Anesthesia under continuous monitoring. Digital rectal examination was normal. Initially the Olympus CF-160 flexible video colonoscope was then inserted in the rectum, gradually advanced into the cecum without any difficulty. Careful examination was performed as the scope was gradually being withdrawn. Ileocecal valve and the appendiceal orifice were visualized and appeared normal. Prep was excellent. Mucosa of the cecum, ascending colon, transverse colon, descending colon, on. There was mild patchy areas of the sigmoid colon and biopsies were done from this area. Rest of the sigmoid colon, and rectum appeared normal. Retroflexion was performed in the rectum and no lesions were seen. The patient tolerated the procedure well. IMPRESSION: Mild colitis with mucosal erythema in the sigmoid colon Rest of the colon appeared normal No evidence of colorectal neoplasia RECOMMENDATIONS: Findings of this examination were discussed with the patient is a family. She was advised to follow with the biopsy results. She will continue with oral mesalamine 4.8 g daily. If the biopsies do not show dysplasia she can have a repeat colonoscopy every 2 years.
[2020-08-29 09:10] VITALS: BP 105/75; PULSE 68; RESP 20
== END 2020-08-29 09:18 | disposition home or self-care (01) ==
LOC: ORWHC2ENDO 07:45
PROVIDERS: ATTEND Internal Medicine Gastroenterology
DX: K52.9 Noninfective gastroenteritis and colitis, unspecified (principal); Z79.899 Other long term (current) drug therapy; J45.909 Unspecified asthma, uncomplicated
CPT/HCPCS: 81025; 88305; 45380; J2250; J2001; J3010; J2704

== ENCOUNTER 2022-09-14 07:07 | Day surgery (SDC) | payer BC ==
[2022-09-14 07:51] VITALS: TEMP 97.9
[2022-09-14] MEDS ORDERED: PROPOFOL 10 MG/ML 20 ML VIAL IV ONE (08:18)
--- NOTE | 2022-09-14 08:32 | P.PCN ---
Date of Procedure: 09/14/22 Procedure(s) Performed: BRIEF HISTORY: Patient is a 32 year-old pleasant white female scheduled for an elective colonoscopy as a part of surveillance of long-standing history of ulcerative colitis diagnosed in 2010. She has been maintained on mesalamine 4.8 g daily and remains in clinical remission. PROCEDURE PERFORMED: Colonoscopy with random biopsies. PREOPERATIVE DIAGNOSIS: long-standing history of ulcerative colitis. IV sedation per Anesthesia. PROCEDURE: After informed consent was obtained, the patient, was brought into the endoscopy unit. IV sedation was administered by Anesthesia under continuous monitoring. Digital rectal examination was normal. Initially the Olympus CF-160 flexible video colonoscope was then inserted in the rectum, gradually advanced into the cecum without any difficulty. Careful examination was performed as the scope was gradually being withdrawn. Ileocecal valve and the appendiceal orifice were visualized and appeared normal. Prep was excellent. Mucosa of the cecum, ascending colon, transverse colon, descending colon, sigmoid colon, and rectum appeared normal. Random biopsies were done from the cecum to rectum at every 10 cm intervals to rule out dysplasia Retroflexion was performed in the rectum and no lesions were seen. The patient tolerated the procedure well. IMPRESSION: Normal-appearing colon from rectum to cecum no evidence of colitis or colorectal neoplasia . RECOMMENDATIONS: Findings of this examination were discussed with the patient as well as a family.. She was advised to follow with the biopsy results. If the biopsy does not show any evidence of dysplasia, she can have a repeat colonoscopy in 2 years
[2022-09-14 08:40] VITALS: RESP 16
[2022-09-14 08:54] VITALS: BP 108/76; PULSE 68
== END 2022-09-14 09:20 | disposition home or self-care (01) ==
LOC: ORWHC2ENDO 07:07
PROVIDERS: ATTEND Internal Medicine Gastroenterology
DX: K51.90 Ulcerative colitis, unspecified, without complications (principal); Z79.899 Other long term (current) drug therapy
CPT/HCPCS: 81025; 88305; 45380; J2704